=== PATIENT | female | born 1950 | race Caucasian/White ===

== ENCOUNTER 2022-12-30 21:45 | Emergency (ER) | payer OTHER ==
[~2022-12-30 21:45] MED LIST: Calcium Chloride 1 GM/10 ML Abboject SYRINGE ONE; EPINEPHrine 1 MG/10 ML Abboject SYRINGE ONE; Sodium Bicarb 50 MEQ/50 ML Abboject 8.4% SYRINGE ONE; Sodium Chloride 0.9% 1,000 ML BAG ONE
[2022-12-30] MEDS ORDERED: Norepinephrine 4 MG/4 ML VIAL ONE ×2 (21:55→22:00)
[2022-12-30] MEDS ORDERED: EPINEPHrine 1 MG/10 ML Abboject SYRINGE ONE (21:56)
[2022-12-30] MEDS ORDERED: fentaNYL 50 mcg/mL 1 mL Vial ONE (22:06)
[2022-12-30 22:22] LABS: Band 15 % (5-11); Eosinophils 1 % (0-10); Hematocrit 30.3 % (36.0-47.0); Hemoglobin 9.4 g/dL (12.0-16.0); Lymphocytes 31 % (21-51); MDiff Complete? YES; Mean Corpuscular HGB CONC 30.9 g/dL (32.0-36.0); Mean Corpuscular Volume 100.2 fl (78.0-98.0); Mean Platelet Volume 6.3 fL (7.4-10.4); Monocytes 15 % (0-10); Neutrophil 38 % (42-75); Platelet Count 214 10x3/uL (130-400); RBC Distribution Width 13.8 % (11.5-14.5); Red Blood Cell (RBC) Count 3.03 mill/uL (4.20-5.40); White Blood Cell (WBC) Count 15.8 10x3/uL (4.8-10.8)
[2022-12-30 22:38] LABS: ALT (SGPT) 196 U/L (8-55); AST (SGOT) 295 U/L (5-34); Albumin 2.1 g/dL (3.4-4.8); Alkaline Phosphatase 128 U/L (40-110); Anion Gap 23 mmol/L (10-20); BUN (Urea Nitrogen) 37 mg/dL (9.8-20.1); Bilirubin, Total 0.2 mg/dL (0.2-1.2); Calc. Creatinine Clearance 0 mL/min (70-130); Calcium 8.8 mg/dL (7.8-10.44); Carbon Dioxide 11 mmol/L (23-31); Chloride 108 mmol/L (98-107); Estimated GFR 25; Globulin 3.1 g/dL (2.4-3.5); Glucose 330 mg/dL (83-110); Lipase 83 U/L (8-78); Potassium 4.8 mmol/L (3.5-5.1); Protein, Total 5.2 g/dL (5.8-8.1); Sodium 137 mmol/L (136-145)
[2022-12-30 22:55] LABS: Troponin I 2.587 ng/mL (< 0.028)
== END 2022-12-30 23:16 | disposition short-term general hospital (02) ==
LOC: MADERS 21:45
DX: I46.9 Cardiac arrest, cause unspecified (principal); J80 Acute respiratory distress syndrome; J93.9 Pneumothorax, unspecified
CPT/HCPCS: 32551; 36415; 71045; 80053; 83690; 84484; 85025; 92950; 96365; 96368; 96375; J0171; J3010; J7050; J7070